=== PATIENT | male | born 1950 | race Caucasian/White ===

== ENCOUNTER 2022-04-09 05:22 | Emergency (ER) | payer OTHER ==
[~2022-04-09 05:22] MED LIST: Acetaminophen 650 MG Suppository ONE; Insulin Regular 300 UNITS/3 ML VIAL ONE; KETAMINE 100 MG/ML (5ML VIAL) ONE; Norepinephrine 4 MG/4 ML VIAL ONE; Racepinephrine 2.25% 0.5 ML NEB ONE; Sodium Chloride 0.45% 1,000 ML ONE; Sodium Chloride 0.9% 1,000 ML ONE; Sodium Chloride 0.9% 100 ML ONE; Sodium Chloride 0.9% 250 ML 250 ML ONE; cefTRIAXone\\ROCEPHIN 2 GM VIAL ONE
[2022-04-09 05:49] LABS: Chloride 100 mmol/L (98-107); Potassium 6.3 mmol/L (3.5-5.1); Sodium 133 mmol/L (136-145)
[2022-04-09 05:50] LABS: ALT (SGPT) 529 U/L (8-55); AST (SGOT) 486 U/L (5-34); Alkaline Phosphatase 71 U/L (40-110); Anion Gap 22 mmol/L (10-20); BUN (Urea Nitrogen) 30 mg/dL (8.4-25.7); Bilirubin, Total 2.4 mg/dL (0.2-1.2); Calc. Creatinine Clearance 0 mL/min (70-130); Calcium 9.2 mg/dL (7.8-10.44); Carbon Dioxide 17 mmol/L (23-31); Estimated GFR 48; Globulin 3.6 g/dL (2.4-3.5); Glucose 105 mg/dL (83-110); Protein, Total 7.6 g/dL (5.8-8.1)
[2022-04-09 05:51] LABS: Hemoglobin 14.6 g/dL (14.0-18.0); Mean Corpuscular HGB CONC 30.8 g/dL (32.0-36.0); Mean Corpuscular Hemoglobin 31.6 pg (27.0-31.0); Platelet Count 137 thou/uL (130-400); RBC Distribution Width 14.1 % (11.5-14.5); Red Blood Cell (RBC) Count 4.61 mill/uL (4.70-6.10); Troponin I 0.249 ng/mL (< 0.028); White Blood Cell (WBC) Count 11.2 thou/uL (4.8-10.8)
[2022-04-09 05:52] LABS: #Basophils 0.1 thou/uL (0.0-0.2); #Monocytes 0.8 thou/uL (0.11-0.59); #Neutrophils 9.8 thou/uL (1.40-6.50); %Basophils 0.7 % (0.0-1.0); %Eosinophils 0.1 % (0.0-10.0); %Lymphocytes 3.8 % (21.0-51.0); %Monocytes 7.3 % (0.0-10.0); %Neutrophils 88.1 % (42.0-75.0); MDiff Complete? YES; Macrocytosis SLIGHT = 6-15 cells (100X) (0-5/hpf)
== END 2022-04-09 08:30 | disposition short-term general hospital (02) ==
LOC: NAV ERS 05:22
DX: T82.119A Breakdown (mechanical) of unspecified cardiac electronic device, initial encounter (principal); J96.90 Respiratory failure, unspecified, unspecified whether with hypoxia or hypercapnia; E87.5 Hyperkalemia; Z86.16 Personal history of COVID-19; J44.9 Chronic obstructive pulmonary disease, unspecified; Z87.891 Personal history of nicotine dependence; I10 Essential (primary) hypertension; Z79.899 Other long term (current) drug therapy
CPT/HCPCS: 31500; 36556; 51702; 71045; 80053; 83605; 83880; 84484; 85025; 93005; 94640; 94760; 96374; 96375; J0696; J1815; J7050; J7620